=== PATIENT | female | born 1995 | race Caucasian/White ===

== ENCOUNTER 2017-10-18 21:13 | Emergency (ER) | payer MEDICAID ==
[~2017-10-18] VITALS: Ht 154.9 cm; Wt 62.6 kg
[2017-10-18 21:15] VITALS: BP 143/65
[2017-10-18 21:23] VITALS: BP 109/76
--- NOTE | 2017-10-18 21:27 | NUR ---
TO LOBBY,A/W DWAYNE ALARCON ERMD NOTED
--- NOTE | 2017-10-18 21:37 | NUR ---
PT AMBULATED TO BED 12
[2017-10-18] MEDS ORDERED: IBUPROFEN 600 MG TAB PO ONE (22:15)
--- NOTE | 2017-10-18 22:15 | NUR ---
FLU SWAB DONE
[2017-10-18 23:35] VITALS: BP 111/72
--- NOTE | 2017-10-18 23:35 | NUR ---
Patient discharged with v/s stable. Written and verbal after care instructions given and explained. Patient alert, oriented and verbalized understanding of instructions. Ambulatory with steady gait. All questions addressed prior to discharge. ID band removed. Patient advised to follow up with PMD. Rx of IBUPROFEN 600MG, ROBITUSSIN DM 10MG-100MG given. Patient educated on indication of medication including possible reaction and side effects. Opportunity to ask questions provided and answered.
== END 2017-10-18 23:35 | disposition home or self-care (01) ==
LOC: MED 21:13
DX: J20.8 Acute bronchitis due to other specified organisms (principal); Z88.8 Allergy status to other drugs, medicaments and biological substances
CPT/HCPCS: 36415; 87804; 99284